=== PATIENT | female | born 1975 | race Caucasian/White ===

== ENCOUNTER 2025-02-24 11:37 | Outpatient (CLI) | payer BC, MEDICAID, SELFPAY ==
--- NOTE | 2025-02-24 11:47 | XR_ITS ---
WS: [id number] Left arm and humerus, 2 views, AP and lateral, 02/24/2025 Clinical Data: PAIN IN LEFT UPPER ARM Comparison: None. Findings: No fractures or dislocations are seen. The shaft of the humerus is intact. The soft tissues are normal. The visualized left shoulder and left elbow are unremarkable. XR/[place] [id number] Impression: Negative left arm and humerus.
== END 2025-02-24 11:38 | disposition home or self-care (01) ==
LOC: RAD 11:43
PROVIDERS: PCP Nurse Practitioner Family; Visit Provider Nurse Practitioner Family
DX: M79.622 Pain in left upper arm (principal)
CPT/HCPCS: 73060

== ENCOUNTER 2025-07-05 09:15 | Outpatient (CLI) | payer BC, MEDICAID, SELFPAY ==
--- NOTE | 2025-07-05 09:24 | XR_ITS ---
WS: [id number] Exam: XR shoulder LT min 2V* [id number] Date/Time of Exam: 07/05/2025 9:24 AM Reason For Exam: PAIN IN LEFT SHOULDER DLP: No acute fracture. The joints are preserved. Normal soft tissues. XR/XR shoulder LT min 2V* [id number] IMPRESSION: 1. Negative LEFT shoulder.
--- NOTE | 2025-07-05 09:24 | XR_ITS ---
WS: [id number] Exam: XR cervical spine min 6V [id number] Date/Time of Exam: 07/05/2025 9:24 AM Reason For Exam: PAIN IN L SHOULDER DLP: No acute fracture. Cervical alignment is normal. No flexion or extension instability. Disc spaces are preserved. Slight facet DJD. Normal soft tissues. The dens is intact. Bony neural foramina are grossly patent from [id number]. XR/XR cervical spine min 6V [id number] IMPRESSION: 1. Very slight facet DJD otherwise negative C-spine.
== END 2025-07-05 09:16 | disposition home or self-care (01) ==
PROVIDERS: PCP Nurse Practitioner Family; Visit Provider Nurse Practitioner Family
DX: M25.512 Pain in left shoulder (principal); M47.812 Spondylosis without myelopathy or radiculopathy, cervical region
CPT/HCPCS: 72052; 73030